=== PATIENT | female | born 1945 | race Caucasian/White ===

== ENCOUNTER 2022-03-12 10:50 | Inpatient (IN) | payer MEDICARE, SELFPAY ==
[2022-03-12 12:15] VITALS: BP 102/39; PULSE 104; RESP 16; TEMP 37.1; O2SAT 97
[2022-03-12 12:17] VITALS: BMI 22.4
[2022-03-12] MEDS: LACTATED RINGERS 1,000 ML 100 ML IV ×2 (13:17→23:06)
--- NOTE | 2022-03-12 14:47 | DI.US.S_ITS ---
PROCEDURE: US ABDOMEN LIMITED INDICATIONS: ?ACUTE CHOLECYSTITIS - PT IS NPO PER NURSE TECHNIQUE: Real-time scanning was performed of the abdominal and retroperitoneal organs, with image documentation. COMPARISON: None. FINDINGS: Liver: Homogeneous echotexture. No evidence of focal mass lesion. No intra hepatic biliary ductal dilatation Gallbladder: Biliary sludge and small shadowing calculi present. No convincing evidence of gallbladder wall thickening or pericholecystic fluid. No Tapia sign Common Bile Duct: 3.4 mm. Pancreas: Unremarkable as visualized IMPRESSION: 1. Cholelithiasis without ultrasound evidence of acute cholecystitis Approved by: Graeme Bland M.D. on 03/12/2022 at 16:23
[2022-03-12 15:13] VITALS: BP 113/49; PULSE 105; RESP 20; TEMP 37.2; O2SAT 95
[2022-03-12] MEDS: ENOXAPARIN 30 MG/0.3 ML SYRINGE SUBCUT (15:20)
--- NOTE | 2022-03-12 16:12 | P.HP_ITS ---
History of Present Illness History of Present Illness Date Patient Seen: 03/12/22 Time Patient Seen: 14:30 Chief complaint: R/O RAYMOND Narrative: Flown from Thursday w concerns for acute raymond. Labs normal range, Ct scan report of possible acute raymond. Pain started last nite, epigatric, 10/10 w radiation to the back. Pain resolving on the way over. Currently groggy from pain meds. Patient History Family & Social History Social History: household members spouse Prior Living Arrangements House Safety & Behavioral: Feels Safe in Current Yes Environment Been Physically Hurt or No Threatened By a Person Tobacco & Substance use: Tobacco type cigarettes Smoking Status Former smoker alcohol intake never Substance Use Type does not use Meds Home Medications and Allergies Home Medications Medication Instructions Recorded Confirmed Type atorvastatin 40 mg tablet 40 mg PO BEDTIME 03/12/22 03/12/22 History carbidopa 25 mg-levodopa 100 mg 2 tab PO 4XD 03/12/22 03/12/22 History tablet niacinamide 500 mg tablet 500 mg PO DAILY 03/12/22 03/12/22 History rivastigmine 4.6 mg/24 hour 4.6 mg topical DAILY 03/12/22 03/12/22 History transdermal patch venlafaxine 150 mg 150 mg PO DAILY 03/12/22 03/12/22 History capsule,extended release 24 hr venlafaxine 37.5 mg 37.5 mg PO Q OTHER DAY 03/12/22 03/12/22 History capsule,extended release 24 hr Allergies Allergy/AdvReac Type Severity Reaction Status Date / Time No Known Drug Allergies Allergy Verified 03/12/22 12:52 Review of Systems Review of Systems ROS: Yes All systems reviewed with the patient and are negative except as otherwise documented Exam Vital Signs (past 8 hours): - 03/12/22 12:15 03/12/22 15:13 Temperature 98.7 F 99.0 F Pulse Rate 104 H 105 H Respiratory Rate 16 20 Blood Pressure 102/39 L 113/49 L Pulse Oximetry 97 95 Oxygen Flow Rate 0 Oxygen Flow Rate 0 Narrative Exam Narrative: Sedated but cooperative Const General: comfortable Nutritional Appearance: average body habitus Orientation: alert, awake and oriented x3 HENMT Head: normocephalic Ears: hearing grossly normal bilaterally Nose: external nose normal Face and sinus: normal facial exam Eyes Sclera: sclerae normal Neck Neck: trachea midline Chest Chest: normal inspection of the chest Resp Effort & Inspection: normal respiratory effort and able to speak in complete sentences Cardio Rate: tachycardic Rhythm: regular rhythm GI Palpation: soft Other: none tender Skin General: atrophy Trauma: no lacerations or abrasions Neuro General: patient awake and patient oriented x3 Extrem General: no clubbing, cyanosis or edema Psych Appearance: grossly normal Affect: normal affect Judgment: judgment good Assessment & Plan Assessment & Plan narrative: Abdominal pain likely to be biliary, but appears resolving Plan: hydration, Abd US, repeat labs in am. COVID-19 COVID-19 status: Negative Time Spent With Patient Critical Care time: I spent a total of [] minutes of critical care time on this patient's care today; this time is exclusive of procedural time. Quality VTE Deep Vein Thrombosis/Pulmonary Embolism Present on Admission: No Intake Visit Reasons: R/O RAYMOND, Parkinson disease Youth Specialist Required: No Allergies No Known Drug Allergies Allergy (Verified 03/12/22 12:52) atorvastatin 40 mg tablet 40 mg PO BEDTIME 03/12/22 [History Confirmed 03/12/22] carbidopa 25 mg-levodopa 100 mg tablet 2 tab PO 4XD 03/12/22 [History Confirmed 03/12/22] niacinamide 500 mg tablet 500 mg PO DAILY 03/12/22 [History Confirmed 03/12/22] rivastigmine 4.6 mg/24 hour transdermal patch 4.6 mg topical DAILY 03/12/22 [History Confirmed 03/12/22] venlafaxine 150 mg capsule,extended release 24 hr 150 mg PO DAILY 03/12/22 [History Confirmed 03/12/22] venlafaxine 37.5 mg capsule,extended release 24 hr 37.5 mg PO Q OTHER DAY 03/12/22 [History Confirmed 03/12/22] Home Medications Acetaminophen (Acetaminophen 325 Mg Tablet) 650 mg PO Q6HR JOSE CARLOS Atorvastatin Calcium (Atorvastatin 20 Mg Tablet) 40 mg PO BEDTIME JOSE CARLOS Carbidopa/Levodopa (Carbidopa-Levodopa 25/100 Tablet) 2 each PO QID [facility] Enoxaparin Sodium (Enoxaparin 30 Mg/0.3 Ml Syringe) 30 mg SUBCUT DAILY JOSE CARLOS Last Admin: 03/12/22 15:20 Dose: 30 mg Famotidine (Famotidine 20 Mg Tablet) 20 mg PO BEDTIME [facility] Lactated Ringer's (Lactated Ringers) 1,000 mls @ 100 mls/hr IV CONT JOSE CARLOS Last Admin: 03/12/22 13:17 Dose: 100 mls/hr Ibuprofen (Ibuprofen 400 Mg Tablet) 400 mg PO Q8HR [facility] Morphine Sulfate (Morphine 2 Mg/Ml Inj) 2 mg IV Q2HR PRN PRN Reason: Pain, Moderate (4-6) Rivastigmine 4.6 Mg/24 Hour Patch 24 Hour 4.6 mg TOP DAILY [facility] Ondansetron HCl (Ondansetron 4 Mg/2 Ml Inj) 4 mg IV Q6HR PRN PRN Reason: Nausea And Vomiting Oxycodone HCl (Oxycodone Ir 5 Mg Tablet) 5 mg PO Q4HR PRN PRN Reason: Pain, Moderate (4-6) Venlafaxine HCl (Venlafaxine Er 37.5 Mg Cap) 37.5 mg PO QOD [facility] Venlafaxine HCl (Venlafaxine Er 75 Mg Cap) 150 mg PO DAILY [facility]
[2022-03-12] MEDS: CARBIDOPA-LEVODOPA 25/100 TABLET 2 EACH PO ×2 (16:31→20:55)
[2022-03-12] MEDS: ACETAMINOPHEN 325 MG TABLET 650 MG PO ×2 (17:11→23:16)
[2022-03-12 17:13] VITALS: BP 108/49; PULSE 118; RESP 19; TEMP 37.3; O2SAT 95
--- NOTE | 2022-03-12 18:10 | PC.NURSE ---
17;56 pt tried to get up 3x pt stated that she is going to a color festival where few ladies will perform, pt also stated that their's two person inside the room, explained to the pt that no one is in the room and she is not going anywhere. Nurse notified
[2022-03-12 18:12] LABS: Appearance Urine UA CLEAR; Bilirubin Urine UA 2+ (NEGATIVE); Color Urine UA ORANGE; Glucose Urine UA TRACE g/dL (Negative); Ketones Urine UA TRACE (NEGATIVE); Leukocyte Esterase Urine UA TRACE (NEGATIVE); Nitrite Urine UA NEGATIVE (Negative); Occult Blood Urine UA NEGATIVE (Negative); Protein Urine UA 1+ (Negative); Specific Gravity Urine UA <=1.005 (1.000-1.035); Urobilinogen Urine UA >=8.0 E.U./dL (0.2)
[2022-03-12 18:13] LABS: pH Urine UA 6.5 (4.5-8.0)
[2022-03-12 18:25] LABS: Bacteria Urine None Seen; Ictotest Urine Positive (Negative); RBC Urine None Seen (0-5/HPF); WBC Urine 1-5/HPF (0-5/HPF)
[2022-03-12 18:26] LABS: Culture Indicated Urine Specimen Cultured
[2022-03-12 20:15] VITALS: BP 96/49; PULSE 112; RESP 16; TEMP 36.9; O2SAT 94
[2022-03-12 20:16] LABS: Estimated Glomerular Filt Rate > 60 mL/min (>60)
[2022-03-12] MEDS: TRIMETH/SULFA 160/800 (DS) TABLET 1 TAB PO (20:55)
[2022-03-12] MEDS: FAMOTIDINE 20 MG TABLET PO (20:55)
[2022-03-12] MEDS: ATORVASTATIN 20 MG TABLET 40 MG PO (20:55)
[2022-03-12] MEDS: IBUPROFEN 400 MG TABLET PO (21:02)
[2022-03-12 23:26] VITALS: BP 97/36; PULSE 92; RESP 16; TEMP 36.6; O2SAT 95
[2022-03-13 05:00] VITALS: BP 98/41; PULSE 76; RESP 16; TEMP 36.9; O2SAT 98
[2022-03-13] MEDS: ACETAMINOPHEN 325 MG TABLET 650 MG PO ×2 (05:56→13:02)
[2022-03-13] MEDS: IBUPROFEN 400 MG TABLET PO ×2 (05:56→21:11)
[2022-03-13 06:09] LABS: Add Manual Diff / Slide Review NO; Basophils Absolute Auto 100 /uL (0-100); Basophils Percent Auto 0.4 % (0-2); Eosinophils Absolute Auto 100 /uL (0-450); Eosinophils Percent Auto 0.8 % (2-4); Hematocrit 34.9 % (36-46); Hemoglobin 11.7 g/dL (12.0-16.0); Lymphocytes Absolute Auto 1100 /uL (1100-4500); Lymphocytes Percent Auto 7.4 % (25-40); Mean Corpuscular HGB Conc 33.7 % (30-36); Mean Corpuscular Hemoglobin 30.1 PG (26-34); Mean Corpuscular Volume 89.3 fL (80-100); Monocytes Absolute Auto 900 /uL (0-900); Monocytes Percent Auto 5.6 % (3-14); Neutrophils Absolute Auto 13200 /uL (1500-7000); Neutrophils Percent Auto 85.8 % (50-75); Platelet Count 226 X10^3/uL (150-400); Red Cell Distribution Width 13.9 % (11.6-14.8); White Blood Cell Count 15.3 X10^3/uL (4.5-11.0)
[2022-03-13 06:21] LABS: Alanine Aminotransferase 77 IU/L (<35); Albumin 3.2 g/dL (3.5-5.0); Albumin Globulin Ratio 1.2 (1.0-2.8); Alkaline Phosphatase 98 U/L (38-126); Aspartate Aminotransferase 511 IU/L (14-36); BUN Creatinine Ratio 20.5 (6-22); Bilirubin Total 4.9 mg/dL (0.2-1.3); Blood Urea Nitrogen 16 mg/dL (7-17); Calcium 8.2 mg/dL (8.4-10.2); Carbon Dioxide 26 mmol/L (22-32); Chloride 104 mmol/L (98-107); Estimated Glomerular Filt Rate > 60 mL/min (>60); Globulin 2.6 g/dL (1.7-4.1); Glucose 65 mg/dL (80-110); HEMOLYSIS < 15 (0-50); Potassium 3.8 mmol/L (3.4-5.1); Sodium 135 mmol/L (137-145); Total Protein 5.8 g/dL (6.3-8.2)
--- NOTE | 2022-03-13 07:02 | PC.NURSE ---
Addendum entered by Mindy Barrera R.N. 03/13/22 07:16: pt NPO except meds since midnight. Original Note: Patient oriented to name only, restless at times, does not use call light, tried to get OOB several times during the night without assist. Pt accidentally pull out IV when turning over in bed. Up to BSC with assist of one, pt unsteady. BP low, see flow sheet, pt asymptomatic. Voiding small amts of urine, dark guillermo/tea colored.
--- NOTE | 2022-03-13 07:40 | DI.MRI.S_ITS ---
PROCEDURE: MR ABDOMEN WO/W CON INDICATIONS: CBD stone? TECHNIQUE: Coronal HASTE, axial 2D FLASH in- and [id number]; axial breath-hold T2 FSE with fat saturation from the hepatic dome to the iliac crests. Oblique coronal thin-slice and radial thick slab HASTE through the biliary system. Dynamic axial VIBE during administration of contrast. Post-contrast coronal VIBE or 2D FLASH with fat saturation from the hepatic dome to the iliac crests. Optional diffusion weighted imaging and ADC may be performed. COMPARISON: [facility], , US ABDOMEN LIMITED, 03/12/2022, 16:06. FINDINGS: Image quality: Suboptimal. Multiple sequences are degraded by motion artifact. Pancreas and biliary system: No biliary ductal dilation or definite choledocholithiasis. No dilation of the main pancreatic duct. 4 millimeter cyst at the pancreatic tail (series 3, image 12). Solid organs: Liver is normal in size and enhancement. Small cyst anterior segment 4. Gallbladder contains sludge and small stones as seen previously. The gallbladder is distended and there is mild wall thickening and/or pericholecystic fluid. Spleen is normal in size and enhancement. No adrenal nodules. Kidneys are normal in size and enhancement, without hydronephrosis. Small simple appearing renal cysts present bilaterally. Nodes and vessels: No retroperitoneal or mesenteric adenopathy by size criteria. Aorta and inferior vena cava are normal in size. Bowel and peritoneum: A periampullary duodenal diverticulum is present. Unenhanced bowel loops are normal in caliber throughout. No substantial free fluid. Lung bases: No basal pleural effusions. Bones and soft tissues: Bone marrow is normal in overall signal. IMPRESSION: 1. No biliary ductal dilation or evidence of choledocholithiasis. 2. Sludge and stones are present in the gallbladder. The gallbladder is also distended and there is mild wall thickening and/or pericholecystic fluid. Correlation for acute cholecystitis may be helpful. 3. A 4 millimeter cyst is present at the pancreatic tail. This is a nonspecific finding but could represent a side branch IPMN. Per ACR incidental findings guidelines, imaging follow-up is recommended in 2 years. Dictated by: Mauricio Montero M.D. on 03/13/2022 at 10:52 Approved by: Mauricio Montero M.D. on 03/13/2022 at 11:07
[2022-03-13 08:00] VITALS: BP 100/41; PULSE 81; RESP 16; TEMP 36.6; O2SAT 95
[2022-03-13] MEDS: ENOXAPARIN 30 MG/0.3 ML SYRINGE SUBCUT (09:11)
[2022-03-13] MEDS: PIPERACILLIN/TAZO 4.5 GM in SODIUM CHLORIDE 0.9% 100 ML IV (09:12)
[2022-03-13] MEDS: CARBIDOPA-LEVODOPA 25/100 TABLET 2 EACH PO ×4 (09:13→21:11)
[2022-03-13] MEDS: VENLAFAXINE ER 75 MG CAP 150 MG PO (09:26)
[2022-03-13] MEDS: LACTATED RINGERS 1,000 ML 100 ML IV ×2 (09:29→21:12)
[2022-03-13 12:00] VITALS: BP 113/52; PULSE 80; RESP 16; TEMP 36.7; O2SAT 96
--- NOTE | 2022-03-13 13:52 | PC.NURSE ---
daughter at bedside. pt follows commands, but still impulsive.
[2022-03-13 14:43] LABS: Add Manual Diff / Slide Review NO; Basophils Absolute Auto 0 /uL (0-100); Basophils Percent Auto 0.3 % (0-2); Eosinophils Absolute Auto 100 /uL (0-450); Hematocrit 34.9 % (36-46); Hemoglobin 11.9 g/dL (12.0-16.0); Lymphocytes Absolute Auto 800 /uL (1100-4500); Lymphocytes Percent Auto 6.7 % (25-40); Mean Corpuscular HGB Conc 34.2 % (30-36); Mean Corpuscular Hemoglobin 30.6 PG (26-34); Mean Corpuscular Volume 89.2 fL (80-100); Monocytes Absolute Auto 400 /uL (0-900); Neutrophils Absolute Auto 10900 /uL (1500-7000); Platelet Count 208 X10^3/uL (150-400); White Blood Cell Count 12.3 X10^3/uL (4.5-11.0)
[2022-03-13 14:59] LABS: Alanine Aminotransferase 36 IU/L (<35); Albumin Globulin Ratio 1.2 (1.0-2.8); Alkaline Phosphatase 89 U/L (38-126); Aspartate Aminotransferase 318 IU/L (14-36); BUN Creatinine Ratio 18.5 (6-22); Bilirubin Total 4.6 mg/dL (0.2-1.3); Blood Urea Nitrogen 15 mg/dL (7-17); Carbon Dioxide 25 mmol/L (22-32); Chloride 102 mmol/L (98-107); Estimated Glomerular Filt Rate > 60 mL/min (>60); Globulin 2.6 g/dL (1.7-4.1); Glucose 83 mg/dL (80-110); HEMOLYSIS < 15 (0-50); Potassium 3.6 mmol/L (3.4-5.1); Sodium 135 mmol/L (137-145); Total Protein 5.6 g/dL (6.3-8.2)
[2022-03-13] MEDS: PIPERACILLIN/TAZO 3.375 GM in SODIUM CHLORIDE 0.9% 100 ML IV ×2 (15:14→22:40)
--- NOTE | 2022-03-13 15:25 | CM.DANOTE ---
Initial Discharge Planning Note: Case reviewed, met with patient earlier and with daughter Ernestina (lives in [place]) this afternoon. Patient is only oriented x 1 and has required a sitter since admission. Payer: [facility] and self pay PCP: Fior Scanlon 76 year old female from admitted yesterday with choleycystitis, abdominal pain. At baseline patient apparently has some cognitive impairment per daughter Ernestina but now has worsened. Patient received pain med(s) and ativan during night. Has required a sitter due to trying to get OOB. MRI done today. Pt currently napping. Patient lives in [place] with her 90 year old spouse. Per daughter, he functions well and helps her mother as needed but that they are very independent and want to stay in their home. Another daughter lives in [place] and is supportive. Daughter Marge lives in [place] and is up staying in a motel tonight and tomorrow night and can transport her mom home when discharged. Daughter wants home health. [facility] can accept. Plan: Follow for needs tomorrow. Need Face to Face for Home Health ([facility]) from surgeon. Daughter Ernestina to transport on discharge home. TRES Discharge Planning/Care Management CM Discharge Assessment Start: 03/13/22 15:17 Freq: Status: Active Protocol: Document 03/13/22 15:17 (Rec: 03/13/22 15:24 [id number]) Discharge Planning Assessment Assigned Marketing Information Coordinator Chanda Dang RN/ASHILP Advance Directives? No History Provided By Patient Prior Living Arrangements House Household Members spouse Type of transporation used prior to Relies on Others admit Independent with ADL's No: Requires some assist from spouse Is patient alert and oriented? No: O x 1 Needs Assistance With Bathing,Managing Medications, Home Chores / Shopping Caregiver for Another No Patient/Family Preference Home with Home Health Barriers to Discharge No Comment Daughters will help patient on discharge in her home Discharge Plan Home Transportation Arrangement Family to transport Referrals Initiated Home Health Additional Comment Edson APONTE If patient plan is home with home health working on : Has signed face to face form been completed? Whiteboard Updated in Patient Room with Yes name and ext. # of Marketing Information Coordinator Review Status In Process Next Review Type Continued Stay Review
[2022-03-13 15:55] VITALS: BP 101/42; PULSE 75; RESP 16; TEMP 36.5; O2SAT 96
--- NOTE | 2022-03-13 18:18 | P.PN_ITS ---
Subjective Subjective Date Patient Seen: 03/13/22 Time Patient Seen: 16:30 Interval history: Patient is resting, no pain. Daughter finds her more confused than baseline but was recently seen for early onset dementia. and has been having confusion at home. Exam Vital Signs (past 8 hours): - 03/13/22 12:00 03/13/22 15:55 Temperature 98.1 F 97.7 F Pulse Rate 80 75 Respiratory Rate 16 16 Blood Pressure 113/52 L 101/42 L Pulse Oximetry 96 96 Oxygen Flow Rate 0 0 Oxygen Flow Rate 0 Narrative Exam Narrative: sleeping, but wakes with our conversation. Non tender, moves easily. US last evening showed sludge and small stone, no cholecystitis and negative Tapia sign. Labs this am went from normal to elevated WBC and T bili at 4.9 with normal Alkphos, slight elevated transaminase. Repeated later in the day after MRCP showed no stones in CBD and all labs are improving. Objective Labs Result Diagrams: 03/13/22 14:31 03/13/22 14:31 Labs: Laboratory Results - last 24 hr 03/12/22 03/12/22 03/13/22 15:56 20:00 05:40 WBC 15.3 H RBC 3.90 L Hgb 11.7 L Hct 34.9 L MCV 89.3 MCH 30.1 MCHC 33.7 RDW 13.9 Plt Count 226 Neut % (Auto) 85.8 H Lymph % (Auto) 7.4 L [place] % (Auto) 5.6 Eos % (Auto) 0.8 L Baso % (Auto) 0.4 Neut # (Auto) 78981 H Lymph # (Auto) 1100 [place] # (Auto) 900 Eos # (Auto) 100 Baso # (Auto) 100 Sodium Potassium Chloride Carbon Dioxide BUN Creatinine 0.72 Estimated GFR > 60 BUN/Creatinine Ratio Glucose Calcium Total Bilirubin AST ALT Alkaline Phosphatase Total Protein Albumin Globulin Albumin/Globulin Ratio Ur Bilirubin Confirm Positive H Urine RBC None seen Urine WBC 1-5/hpf Urine Bacteria None seen Ur Culture Indicated? Specimen cultured 03/13/22 03/13/22 03/13/22 05:40 14:31 14:31 WBC 12.3 H RBC 3.90 L Hgb 11.9 L Hct 34.9 L MCV 89.2 MCH 30.6 MCHC 34.2 RDW 14.0 Plt Count 208 Neut % (Auto) 89.0 H Lymph % (Auto) 6.7 L [place] % (Auto) 3.0 Eos % (Auto) 1.0 L Baso % (Auto) 0.3 Neut # (Auto) 69990 H Lymph # (Auto) 800 L [place] # (Auto) 400 Eos # (Auto) 100 Baso # (Auto) 0 Sodium 135 L 135 L Potassium 3.8 3.6 Chloride 104 102 Carbon Dioxide 26 25 BUN 16 15 Creatinine 0.78 0.81 Estimated GFR > 60 > 60 BUN/Creatinine Ratio 20.5 18.5 Glucose 65 L 83 Calcium 8.2 L 8.0 L Total Bilirubin 4.9 H 4.6 H AST 511 H 318 H ALT 77 H 36 H Alkaline Phosphatase 98 89 Total Protein 5.8 L 5.6 L Albumin 3.2 L 3.0 L Globulin 2.6 2.6 Albumin/Globulin Ratio 1.2 1.2 Ur Bilirubin Confirm Urine RBC Urine WBC Urine Bacteria Ur Culture Indicated? PFSH Social History household members: spouse Smoking Status: Former smoker alcohol intake: never Assessment & Plan Assessment & Plan narrative: Likely biliary colic with a transient bacteremia that worsened her mental clarity. No evidence of ongoing issues. Kashif added this am with already good response. Narcotics avoided. Plan: Discussed with daughter surgery vs observation with surgery if symptoms recur given her other medical issues. She agree with observation. Repeat labs in am and if continued improvement, home with VNS. Time Spent With Patient Time with patient: 50 to 69 minutes with 50% spent counseling/coordinating care Critical Care time: I spent a total of [] minutes of critical care time on this patient's care today; this time is exclusive of procedural time. Quality VTE Deep Vein Thrombosis/Pulmonary Embolism Present on Admission: No
[2022-03-13 19:25] VITALS: BP 111/39; PULSE 82; RESP 17; TEMP 36.1; O2SAT 98
[2022-03-13] MEDS: FAMOTIDINE 20 MG TABLET PO (21:11)
[2022-03-13] MEDS: ATORVASTATIN 20 MG TABLET 40 MG PO (21:11)
[2022-03-13] MEDS: SODIUM CHLORIDE 0.9% 250 ML 21 ML IV (22:40)
[2022-03-13 22:58] VITALS: BP 130/50; PULSE 77; RESP 18; TEMP 36.7; O2SAT 97
[2022-03-14 05:33] VITALS: BP 108/32; PULSE 75; RESP 17; TEMP 36.7; O2SAT 97
[2022-03-14] MEDS: PIPERACILLIN/TAZO 3.375 GM in SODIUM CHLORIDE 0.9% 100 ML IV (06:31)
[2022-03-14 06:42] LABS: Add Manual Diff / Slide Review NO; Basophils Absolute Auto 100 /uL (0-100); Basophils Percent Auto 0.6 % (0-2); Eosinophils Absolute Auto 300 /uL (0-450); Eosinophils Percent Auto 3.2 % (2-4); Hematocrit 34.1 % (36-46); Hemoglobin 11.7 g/dL (12.0-16.0); Lymphocytes Absolute Auto 800 /uL (1100-4500); Lymphocytes Percent Auto 8.4 % (25-40); Mean Corpuscular HGB Conc 34.2 % (30-36); Mean Corpuscular Hemoglobin 30.3 PG (26-34); Mean Corpuscular Volume 88.5 fL (80-100); Monocytes Absolute Auto 600 /uL (0-900); Monocytes Percent Auto 5.7 % (3-14); Neutrophils Absolute Auto 8300 /uL (1500-7000); Neutrophils Percent Auto 82.1 % (50-75); Platelet Count 205 X10^3/uL (150-400); Red Blood Cell Count 3.85 X10^6/uL (4.0-5.2); Red Cell Distribution Width 13.9 % (11.6-14.8); White Blood Cell Count 10.1 X10^3/uL (4.5-11.0)
[2022-03-14 06:54] LABS: Alanine Aminotransferase 39 IU/L (<35); Albumin 2.8 g/dL (3.5-5.0); Alkaline Phosphatase 94 U/L (38-126); Aspartate Aminotransferase 191 IU/L (14-36); BUN Creatinine Ratio 13.8 (6-22); Bilirubin Total 2.2 mg/dL (0.2-1.3); Blood Urea Nitrogen 11 mg/dL (7-17); Calcium 8.2 mg/dL (8.4-10.2); Carbon Dioxide 24 mmol/L (22-32); Chloride 106 mmol/L (98-107); Estimated Glomerular Filt Rate > 60 mL/min (>60); Globulin 2.7 g/dL (1.7-4.1); Glucose 58 mg/dL (80-110); HEMOLYSIS < 15 (0-50); Potassium 3.8 mmol/L (3.4-5.1); Sodium 137 mmol/L (137-145); Total Protein 5.5 g/dL (6.3-8.2)
[2022-03-14 08:35] VITALS: BP 119/52; PULSE 84; RESP 16; TEMP 36.8; O2SAT 96
--- NOTE | 2022-03-14 09:47 | PC.NURSE ---
Pt is afebrile, vss, denied px. Pt has antibiotics for UTI, tolerating well. Pt will be d/c today with daughter.
[2022-03-14] MEDS: CARBIDOPA-LEVODOPA 25/100 TABLET 2 EACH PO (10:18)
[2022-03-14] MEDS: VENLAFAXINE ER 75 MG CAP 150 MG PO (10:19)
[2022-03-14] MEDS: ENOXAPARIN 30 MG/0.3 ML SYRINGE SUBCUT (10:19)
--- NOTE | 2022-03-19 06:44 | PM.DS.1 ---
History of Present Illness History of Present Illness Date Patient Seen: 03/14/22 Time Patient Seen: 09:00 Chief complaint: R/O RAYMOND Narrative: Flown from Thursday w concerns for acute raymond. Labs normal range, Ct scan report of possible acute raymond. Pain started last nite, epigatric, 10 w radiation to the back. Pain resolving on the way over. Currently groggy from pain meds. Discharge Providers Provider Date of admission: 03/12/22 10:50 Discharge Date: 03/14/22 Primary care physician: Fior Scanlon, MSN, NITROCELLULOSE MAKER, BRIQUETTER OPERATOR-BC Consults: 03/14/22 08:32 Consult to Home Health Routine Comment: Reason For Exam: Home Health: for RN, PT/OT Discharge provider: Mariel Han MD Summary Hospital Course Discharge Diagnosis: biliary colic, Parkinson, early dementia, gallstones. had a transient elevation in LFTs and WBC c/w bacteremia. No stones in CBD on MRCP. US of gallbladder showed small stones and sludge. d Decision made w daughter to observe rather than surgery given her Parkinson's and dementia issues. Hospital Course: as above. Status at Discharge Cognitive/behavioral status at discharge: at baseline, confused Functional status at discharge: independent ambulation Overall status at discharge: patient is progressing back to baseline Time Spent with Patient Time spent: Greater than 30 minutes Exam Vital Signs (past 8 hours): Oxygen Flow Rate 0 Const General: cooperative and comfortable Nutritional Appearance: average body habitus Orientation: oriented to person, oriented to place and confused (mildly confusion on short term memory) [facility] Head: normocephalic and atraumatic Ears: hearing grossly normal bilaterally Face and sinus: normal facial exam Eyes General: appearance normal, both eyes and all related structures Sclera: sclerae normal Neck Neck: normal visual inspection and trachea midline Chest Chest: normal inspection of the chest Resp Effort & Inspection: normal respiratory effort and able to speak in complete sentences Cardio Rate: regular rate Rhythm: regular rhythm GI Inspection: normal to inspection Palpation: soft Other: not tender Skin General: no rashes or lesions noted and atrophy Neuro General: patient alert and patient awake Cognition: abnormal cognition (mild confusion to recent events) Speech: speech normal Extrem General: full ROM Psych Appearance: grossly normal Mental Status: mental status grossly normal (clear memory issues and occasion confusion) Affect: animated Attitude: cooperative Judgment: judgment good Objective Labs Result Diagrams: 03/14/22 06:11 03/14/22 06:11 [facility] Social History household members: spouse Smoking Status: Former smoker alcohol intake: never Discharge Assessment & Plan Assessment and Plan Assessment: home with family and VNS Plan of Treatment: Lap raymond if symptoms recur Complete course of antibiotics Discharge Plan Discharge Plan Patient Disposition: Home Health Service Provider Discharge Comment: This was likely a gallstone passing. IF symptoms occur again, I recommend removal of gall bladder. Discharge orders & Medications Prescriptions: New amoxicillin-pot clavulanate [Augmentin] 500-125 mg tablet 1 tab PO BID Qty: 10 0RF Continued atorvastatin 40 mg tablet 40 mg PO BEDTIME venlafaxine 37.5 mg capsule,extended release 24hr 37.5 mg PO Q OTHER DAY venlafaxine 150 mg capsule,extended release 24hr 150 mg PO DAILY niacinamide 500 mg Tablet 500 mg PO DAILY carbidopa-levodopa 25-100 mg tablet 2 tab PO 4XD rivastigmine 4.6 mg/24 hour patch 24 hour 4.6 mg topical DAILY Label Comments: APPLY ONE PATCH onto the skin EVERY DAY Follow up/Referrals: Fior Scanlon, MSN, NITROCELLULOSE MAKER, BRIQUETTER OPERATOR-BC [Primary Care Provider] - Diet/Activity/Treatments Diet: Low-fat Skin/Wound/Dressing Care Report to your healthcare provider any signs of infection, such as:: increased pain Visit Report/Discharge Packet Instructions: Urinary Tract Infection, Acute Abdominal Pain, Amoxicillin and Clavulanic Acid Discharge Data Primary Care Provider: Fior Scanlon Quality VTE Deep Vein Thrombosis/Pulmonary Embolism Present on Admission: No
== END 2022-03-14 13:33 | disposition home health service (06) | DRG 445 ==
PROVIDERS: Admitting Provider Surgery; PCP Nurse Practitioner Family; Referring Provider Surgery; Visit Provider Surgery
DX: K80.70 Calculus of gallbladder and bile duct without cholecystitis without obstruction (principal); R78.81 Bacteremia; G20 Parkinson's disease; F02.80 Dementia in other diseases classified elsewhere, unspecified severity, without behavioral disturbance, psychotic disturbance, mood disturbance, and anxiety; Z87.891 Personal history of nicotine dependence; Z20.822 Contact with and (suspected) exposure to COVID-19
CPT/HCPCS: 36415; 74183; 76705; 80053; 81001; 82565; 82962; 85025; 87077; 87086; 87186; 99221; 99231; 99238; A9270; J1650; J2543